=== PATIENT | male | born 1955 | race Caucasian/White ===

== ENCOUNTER 2016-11-26 09:27 | Inpatient (IN) | payer BC ==
[2016-11-26] MEDS ORDERED: SODIUM CHLORIDE 0.9% IV PRN (09:34)
[2016-11-26] MEDS ORDERED: CLINDAMYCIN IV PRN (09:34)
[2016-11-26] MEDS ORDERED: PIPERACILLIN/TAZOBACT 3.375 GM 3.375 GM in SODIUM CHLORIDE 0.9% 100 ML 100 ML IV SCH (09:45)
[2016-11-26] MEDS ORDERED: VANCOMYCIN HCL 500 MG PDS 1,000 MG in SODIUM CHLORIDE 0.9% 250 ML 250 ML IV SCH (09:45)
[2016-11-26] MEDS ORDERED: LEVOFLOXACIN 500 MG (PREMIX) 500 MG/100 ML SOL IV SCH (09:45)
[2016-11-26] MEDS ORDERED: KETOROLAC TROMETHAMINE 30 MG/ML SOL IV PRN (10:12)
[2016-11-26] MEDS ORDERED: KETOROLAC TROMETHAMINE 30 MG/ML SOL IV ONE (10:13)
[2016-11-26] MEDS: DEXTROSE/SALINE 0.45/KCL 20MEQ 1,000 ML/1,000 ML SOL IV SCH ×2 (10:15→16:44)
[2016-11-26] MEDS ORDERED: VANCOMYCIN HCL 500 MG PDS 2,000 MG in SODIUM CHLORIDE 0.9% 250 ML 250 ML IV SCH (10:31)
[2016-11-26] MEDS ORDERED: ONDANSETRON HCL 4 MG/2 ML SOL IV PRN (11:14)
[2016-11-26] MEDS ORDERED: VANCOMYCIN HYDROCHLORIDE 500 MG PDS IV ONE (11:30)
[2016-11-26] MEDS: ENOXAPARIN 40 MG SOL SC SCH (11:51)
[2016-11-26] MEDS ORDERED: SODIUM CHLORIDE 0.9% 250 ML 250 ML IV ONE ×2 (13:07→13:20)
[2016-11-26] MEDS ORDERED: CLINDAMYCIN 150 MG/ML SOL ONE ×2 (13:07→13:20)
[2016-11-26] MEDS ORDERED: DIAZEPAM 5MG/ML SOL IV PRN (13:55)
[2016-11-26] MEDS ORDERED: SODIUM CHLORIDE 0.9% 100 ML 100 ML IV ONE (14:13)
[2016-11-26] MEDS ORDERED: PIPERACILLIN/TAZOBACT 3.375 GM PDS IV ONE (14:13)
[2016-11-26] MEDS: PIPERACILLIN/TAZOBACT 3.375 GM 3.375 GM in SODIUM CHLORIDE 0.9% 100 ML 100 ML IV SCH ×2 (14:39→20:33)
[2016-11-26] MEDS: SODIUM CHLORIDE 0.9% FLUSH 10 ML SOL IV SCH ×2 (14:54→21:12)
[2016-11-26] MEDS: APAP/HYDROCODONE 325/5 TAB PO PRN (15:23)
[2016-11-26] MEDS: DIAZEPAM 5 MG TAB PO PRN (23:46)
[2016-11-27] MEDS: DEXTROSE/SALINE 0.45/KCL 20MEQ 1,000 ML/1,000 ML SOL IV SCH ×3 (00:21→17:49)
[2016-11-27] MEDS: DIAZEPAM 5 MG TAB PO PRN ×7 (01:06→22:46)
[2016-11-27] MEDS: PIPERACILLIN/TAZOBACT 3.375 GM 3.375 GM in SODIUM CHLORIDE 0.9% 100 ML 100 ML IV SCH ×4 (02:08→18:34)
[2016-11-27] MEDS: LEVOTHYROXINE SODIUM 50 MCG TAB PO SCH (06:37)
[2016-11-27] MEDS: SODIUM CHLORIDE 0.9% FLUSH 10 ML SOL IV SCH ×4 (06:43→21:40)
[2016-11-27 07:12] LABS: CALCIUM 7.4 mg/dl (8.5-10.1); POTASSIUM 3.8 mMol/L (3.5-5.1)
[2016-11-27 07:18] LABS: HEMATOCRIT 39 % (39-53); MEAN CORPUSCULAR HGB CONC 34.9 gm/dl (32.0-36.0); MEAN CORPUSCULAR VOLUME 85 fL (80-100)
[2016-11-27 07:36] LABS: BASOPHILS % (MANUAL) 0 % (0-3); EOSINOPHILS % (MANUAL) 2 % (0-9); LYMPHOCYTES % (MANUAL) 6 % (10-50); NORMAL RBCS PRESENT
[2016-11-27] MEDS ORDERED: ENOXAPARIN 60 MG SOL SC SCH (09:00)
[2016-11-27] MEDS ORDERED: ALBUTEROL NEB SOL 2.5MG/3ML 1 VIAL SOL NEB PRN (09:20)
[2016-11-27] MEDS: LEVOFLOXACIN 500 MG (PREMIX) 500 MG/100 ML SOL IV SCH (09:43)
[2016-11-27] MEDS ORDERED: TDAP VACCINE 0.5 ML SUS IM ONE (10:45)
[2016-11-27] MEDS: ENOXAPARIN 40 MG SOL SC SCH (12:00)
[2016-11-27] MEDS: ALBUTEROL/IPRATROPIUM 1 VIAL SOL INH SCH ×3 (14:20→21:06)
[2016-11-27] MEDS: ACETAMINOPHEN 325 MG PO PRN (14:31)
[2016-11-27] MEDS: METOPROLOL TARTRATE 5 MG/5 ML SOL IV SCH ×3 (15:03→15:35)
[2016-11-27] MEDS ORDERED: METOPROLOL SUCCINATE 50 MG ER TAB PO ONE (15:06)
[2016-11-27] MEDS ORDERED: CLONIDINE 0.1 MG TAB PO ONE (15:06)
[2016-11-27] MEDS ORDERED: SODIUM CHLORIDE 0.9% 1000ML 1,000 ML IV ONE ×4 (15:08→19:55)
[2016-11-27] MEDS ORDERED: ADENOSINE 3 MG/ML SOL IV ONE ×2 (15:50)
[2016-11-27] MEDS: ADENOSINE 3 MG/ML SOL IV PRN ×2 (16:03→16:12)
[2016-11-27] MEDS ORDERED: AMIODARONE 50 MG/ML SOL IVP ONE (16:37)
[2016-11-27] MEDS ORDERED: PROPOFOL 10 MG/ML EMU IV ONE (16:43)
[2016-11-27] MEDS ORDERED: DIAZEPAM 5MG/ML SOL IV STA (16:56)
[2016-11-27] MEDS ORDERED: DILTIAZEM 5 MG/ML SOL IV ONE ×4 (17:54→20:03)
[2016-11-27 19:02] LABS: ALBUMIN 2.2 gm/dl (3.4-5.0); CALCIUM 7.7 mg/dl (8.5-10.1); POTASSIUM 3.9 mMol/L (3.5-5.1)
[2016-11-27] MEDS ORDERED: DILTIAZEM 5 MG/ML SOL IV STA (19:39)
[2016-11-27] MEDS ORDERED: SODIUM CHLORIDE 0.9% 100 ML 100 ML IV ONE ×2 (19:56→20:04)
[2016-11-27] MEDS: DILTIAZEM 5 MG/ML 125 MG in SODIUM CHLORIDE 0.9% 100 ML 100 ML IV SCH (20:09)
[2016-11-27] MEDS ORDERED: FUROSEMIDE 20mg SOL IV ONE (21:22)
[2016-11-27] MEDS: APAP/HYDROCODONE 325/5 TAB PO PRN (22:45)
[2016-11-28] MEDS: SODIUM CHLORIDE 0.9% FLUSH 10 ML SOL IV SCH ×11 (00:22→23:16)
[2016-11-28] MEDS: PIPERACILLIN/TAZOBACT 3.375 GM 3.375 GM in SODIUM CHLORIDE 0.9% 100 ML 100 ML IV SCH ×3 (00:23→11:37)
[2016-11-28] MEDS: DEXTROSE/SALINE 0.45/KCL 20MEQ 1,000 ML/1,000 ML SOL IV SCH ×2 (04:15→14:25)
[2016-11-28] MEDS: ACETAMINOPHEN 325 MG PO PRN (04:18)
[2016-11-28] MEDS: DIAZEPAM 5 MG TAB PO PRN (04:24)
[2016-11-28] MEDS: HEPARIN SODIUM 5000 U/ML SOL SC SCH ×2 (06:04→17:59)
[2016-11-28] MEDS: LEVOTHYROXINE SODIUM 50 MCG TAB PO SCH (06:17)
[2016-11-28 07:32] LABS: BASOPHILS % (AUTO) 0 % (0-3); EOSINOPHILS % (AUTO) 4 % (0-9); HEMATOCRIT 37 % (39-53); MEAN CORPUSCULAR HGB CONC 34.8 gm/dl (32.0-36.0); MEAN CORPUSCULAR VOLUME 86 fL (80-100); MONOCYTES % (AUTO) 3.7 % (0-12)
[2016-11-28 07:50] LABS: THYROID STIMULATING HORMONE 3.852 uIU/ml (0.358-3.740)
[2016-11-28] MEDS: LEVOFLOXACIN 500 MG (PREMIX) 500 MG/100 ML SOL IV SCH (08:10)
[2016-11-28] MEDS: ALBUTEROL/IPRATROPIUM 1 VIAL SOL INH SCH ×4 (09:02→21:16)
[2016-11-28] MEDS: SOLUMEDROL 125 MG/2 ML 125 MG/2 ML PDS IV SCH ×3 (09:26→21:20)
[2016-11-28] MEDS: FUROSEMIDE 100 MG SOL IV SCH (09:37)
[2016-11-28] MEDS ORDERED: SODIUM CHLORIDE 0.9% 250 ML 250 ML IV ONE (09:53)
[2016-11-28] MEDS ORDERED: VANCOMYCIN HYDROCHLORIDE 500 MG PDS IV ONE (09:53)
[2016-11-28] MEDS ORDERED: VANCOMYCIN HCL 500 MG PDS 1,000 MG in SODIUM CHLORIDE 0.9% 250 ML 250 ML IV SCH (10:00)
[2016-11-28] MEDS ORDERED: DILTIAZEM 5 MG/ML SOL IV ONE (13:25)
[2016-11-28] MEDS ORDERED: SODIUM CHLORIDE 0.9% 100 ML 100 ML IV ONE ×3 (13:27→22:52)
[2016-11-28] MEDS ORDERED: CLINDAMYCIN 150 MG/ML SOL IV SCH (13:30)
[2016-11-28] MEDS: DILTIAZEM 5 MG/ML 125 MG in SODIUM CHLORIDE 0.9% 100 ML 100 ML IV SCH (13:45)
[2016-11-28] MEDS: [UNRECOGNIZED DRUG - OTHER] IV SCH ×3 (14:47→22:11)
[2016-11-28] MEDS ORDERED: CLINDAMYCIN 150 MG/ML SOL ONE ×2 (15:26→22:52)
[2016-11-28] MEDS: CLINDAMYCIN 150 MG/ML 900 MG in SODIUM CHLORIDE 0.9% 100 ML 100 ML IV SCH ×2 (15:57→23:16)
[2016-11-28] MEDS: DILTIAZEM ER 120 MG C24 PO SCH (16:00)
[2016-11-28] MEDS: WARFARIN SODIUM 7.5 MG TAB PO SCH (17:59)
[2016-11-29] MEDS: SODIUM CHLORIDE 0.9% FLUSH 10 ML SOL IV SCH ×7 (00:30→23:30)
[2016-11-29] MEDS: DEXTROSE/SALINE 0.45/KCL 20MEQ 1,000 ML/1,000 ML SOL IV SCH (00:30)
[2016-11-29] MEDS: [UNRECOGNIZED DRUG - OTHER] IV SCH ×6 (03:05→23:46)
[2016-11-29] MEDS: SOLUMEDROL 125 MG/2 ML 125 MG/2 ML PDS IV SCH ×5 (04:22→23:46)
[2016-11-29] MEDS: HEPARIN SODIUM 5000 U/ML SOL SC SCH ×2 (06:47→17:28)
[2016-11-29] MEDS: FUROSEMIDE 100 MG SOL IV SCH (07:19)
[2016-11-29] MEDS: LEVOTHYROXINE SODIUM 50 MCG TAB PO SCH (07:21)
[2016-11-29] MEDS: ALBUTEROL/IPRATROPIUM 1 VIAL SOL INH SCH ×4 (09:01→20:18)
[2016-11-29] MEDS: DILTIAZEM ER 120 MG C24 PO SCH (09:01)
[2016-11-29] MEDS ORDERED: SODIUM CHLORIDE 0.9% 100 ML 100 ML IV ONE ×2 (09:07→16:52)
[2016-11-29] MEDS ORDERED: CLINDAMYCIN 150 MG/ML SOL ONE ×2 (09:07→16:52)
[2016-11-29] MEDS: CLINDAMYCIN 150 MG/ML 900 MG in SODIUM CHLORIDE 0.9% 100 ML 100 ML IV SCH ×3 (09:14→23:55)
[2016-11-29] MEDS: WARFARIN SODIUM 7.5 MG TAB PO SCH (17:28)
[2016-11-30] MEDS: [UNRECOGNIZED DRUG - OTHER] IV SCH ×3 (03:19→10:04)
[2016-11-30] MEDS: SODIUM CHLORIDE 0.9% FLUSH 10 ML SOL IV SCH ×3 (06:09→15:03)
[2016-11-30] MEDS: SOLUMEDROL 125 MG/2 ML 125 MG/2 ML PDS IV SCH (06:12)
[2016-11-30] MEDS: HEPARIN SODIUM 5000 U/ML SOL SC SCH (06:15)
[2016-11-30] MEDS: LEVOTHYROXINE SODIUM 50 MCG TAB PO SCH (06:16)
[2016-11-30 07:23] LABS: HEMATOCRIT 38 % (39-53); MEAN CORPUSCULAR HGB CONC 34.3 gm/dl (32.0-36.0); MEAN CORPUSCULAR VOLUME 86 fL (80-100)
[2016-11-30 07:35] LABS: ALBUMIN 2.1 gm/dl (3.4-5.0); CALCIUM 7.5 mg/dl (8.5-10.1); POTASSIUM 3.9 mMol/L (3.5-5.1)
[2016-11-30] MEDS: CLINDAMYCIN 150 MG/ML 900 MG in SODIUM CHLORIDE 0.9% 100 ML 100 ML IV SCH (08:03)
[2016-11-30] MEDS: ALBUTEROL/IPRATROPIUM 1 VIAL SOL INH SCH ×2 (08:06→13:08)
[2016-11-30] MEDS: DILTIAZEM ER 120 MG C24 PO SCH (08:12)
[2016-11-30 08:20] LABS: ANISOCYTOSIS SLIGHT AMT; BASOPHILS % (MANUAL) 0 % (0-3); EOSINOPHILS % (MANUAL) 0 % (0-9); LYMPHOCYTES % (MANUAL) 7 % (10-50)
[2016-11-30 08:21] LABS: TARGET CELLS RARE
[2016-11-30] MEDS ORDERED: FUROSEMIDE 20 MG TAB PO SCH (09:00)
[2016-11-30] MEDS ORDERED: PREDNISONE 20 MG TAB PO SCH (10:30)
[2016-11-30] MEDS ORDERED: DILTIAZEM ER 120 MG C24 PO SCH (10:30)
[2016-11-30 12:15] LABS: HEMOGLOBIN A1C 5.8 % (4.8-6.0)
[2016-11-30 13:09] VITALS: BP 121/82; TEMP 96.8
[2016-11-30] MEDS ORDERED: PNEUMOCOCCAL VACCINE 0.5 ML SOL IM ONE (13:50)
[2016-11-30] MEDS ORDERED: INFLUENZA VIRUS VACCINE 0.5 ML SUS IM ONE (13:50)
[2016-11-30 14:18] VITALS: PULSE 92; RESP 20; O2SAT 97
== END 2016-11-30 14:55 | disposition home or self-care (01) | DRG 383 ==
LOC: ACUTE CARE 09:27
PROVIDERS: ADMIT Emergency Medicine; ATTEND Emergency Medicine
PROC: 5A2204Z Restoration of Cardiac Rhythm, Single (ICD-10-PCS; principal; 2016-11-27)
DX: L03.116 Cellulitis of left lower limb (principal); I95.9 Hypotension, unspecified; E89.0 Postprocedural hypothyroidism; Z72.89 Other problems related to lifestyle; R05 Cough; Z87.891 Personal history of nicotine dependence; B95.0 Streptococcus, group A, as the cause of diseases classified elsewhere; R09.02 Hypoxemia; R60.0 Localized edema; L97.822 Non-pressure chronic ulcer of other part of left lower leg with fat layer exposed; I48.0 Paroxysmal atrial fibrillation
CPT/HCPCS: 36415; 71020; 80048; 80053; 83036; 84443; 84484; 85007; 85025; 85027; 85610; 87040; 90732; 92960; 93005; 93012; 94640; 94664; J0153; J0282; J1644; J1650; J1885; J1940; J1956; J2405; J2543; J2930; J3360; J3370; J7620; S0077; A6232; A6446; J2704

== ENCOUNTER 2017-08-11 07:16 | Day surgery (SDC) | payer BC ==
[2017-08-11] MEDS ORDERED: PROPOFOL 500 MG/50 ML EMU IV ONE (07:27)
[2017-08-11] MEDS ORDERED: LIDOCAINE HCL 1% MPF SOL ONE (07:27)
[2017-08-11] MEDS ORDERED: BUPIVACAINE LIPOSOME 20 ML SUS ONE (07:28)
[2017-08-11] MEDS ORDERED: SUCCINYLCHOLINE CHLORIDE 20 MG/ML SOL IV ONE (07:38)
[2017-08-11] MEDS ORDERED: ROCURONIUM BROMIDE 10 MG/ML SOL IV ONE (07:38)
[2017-08-11] MEDS ORDERED: FENTANYL 100MCG/2ML SOL ONE (07:45)
[2017-08-11 09:23] VITALS: O2SAT 97
[2017-08-11 09:38] VITALS: BP 136/86; PULSE 73; RESP 18; TEMP 976
== END 2017-08-11 10:15 | disposition home or self-care (01) ==
LOC: SURG 07:16
PROVIDERS: ATTEND Surgery
DX: Z12.11 Encounter for screening for malignant neoplasm of colon (principal); K57.30 Diverticulosis of large intestine without perforation or abscess without bleeding; K64.4 Residual hemorrhoidal skin tags
CPT/HCPCS: 45378; 46255; 99001; J0330; J2001; J2704; J3010